=== PATIENT | male | born 1980 | race Caucasian/White ===

== ENCOUNTER 2020-10-29 16:03 | Emergency (ER) | payer OTHER ==
[~2020-10-29] VITALS: Ht 165.1 cm; Wt 61.7 kg
[2020-10-29] MEDS ORDERED: AMOXIL 875 MG875 M1 PO (17:26)
[2020-10-29 17:43] VITALS: BP 152/90
== END 2020-10-29 17:44 | disposition home or self-care (01) ==
LOC: M.ERS 16:03
DX: K08.89 Other specified disorders of teeth and supporting structures (principal); Z87.442 Personal history of urinary calculi